=== PATIENT | male | born 1990 | race Caucasian/White ===

== ENCOUNTER 2023-05-25 16:13 | Emergency (ER) | payer BC, SELFPAY ==
[2023-05-25 16:24] VITALS: BP 168/99; BMI 25.8
[2023-05-25 16:47] LABS: % Basophils 0.5 % (0-2); % Eosinophils 0.6 % (0-6); % Immature Granulocytes 0.2 % (0-0.5); % Monocytes 3.3 % (1.7-9.3); % Neutrophils 65.4 % (42.2-75.2); Absolute Monocytes 0.2 10^3/uL (0.1-0.6); Absolute Neutrophils 4.3 10^3/uL (1.4-6.5); Hematocrit 40.8 % (39.0-52.0); Hemoglobin 14.7 g/dL (13.0-18.0); Mean Corpuscular Hgb 31.5 pg (27.0-31.0); Mean Corpuscular Volume 87.6 fL (80.0-94.0); Mean Platelet Volume 9.7 fL (7.4-10.4); Nucleated Red Blood Cells % 0 % (-); Platelet Count 253 10^3/uL (130-400); Red Blood Cell Count 4.66 10^6/uL (4.70-6.10); Red Cell Dist. Width 11.6 % (11.5-14.5); White Blood Cell Count 6.6 10^3/uL (4.8-10.8)
[2023-05-25 16:57] LABS: ALT (SGPT) 42 U/L (0-50); AST (SGOT) 32 U/L (17-59); Albumin 4.4 g/dl (3.5-5.0); Alkaline Phosphatase 44 U/L (38-126); Blood Urea Nitrogen 17 mg/dl (9-20); Carbon Dioxide 25 mmol/L (22-30); Chloride 103 mmol/L (98-107); Estimated Creatinine Clearance > 125 ml/min; Glucose 130 mg/dl (70-99); Potassium 3.9 mmol/L (3.5-5.1); Sodium 139 mmol/L (135-145); Total Bilirubin 0.7 mg/dl (0.2-1.3); Total Protein 7.1 g/dl (6.3-8.2); eGFR > 60.00
--- NOTE | 2023-05-25 19:54 | ED.GENMED ---
History of Present Illness
General
Chief Complaint: Headache
Source: patient
Exam Limitations: none
Time Seen by Provider: 05/25/23 19:40
Travel History
Have you had any contact with someone who has COVID-19?: No
Do you have any symptoms of coronavirus? Fever > 100 degrees, chills, cough, shortness of breath, sore throat, loss of taste or smell, muscle aches, or headache?: No
History of Present Illness
History of Present Illness:
Healthy 33-year-old male complaining of right-sided headache right temporal right scalp and behind the right eye. Symptoms for 2 weeks. Seen by primary care and started on antibiotics for possible sinus infection. Today he had a near syncopal
episode which prompted evaluation. No chest pain shortness of breath or other complaints. Although stated in triage that his vision feels blurred he states he has no acute visual issues to me
Past History
Past History
ED Past Medical History: Other (SVT)
ED Past Surgical History: Urological (Vasectomy) and Other (Some teeth)
Review of Systems
Review of Systems
All Other Systems: Not applicable
Constitutional: Denies fever
Respiratory: Reports no symptoms
Cardiac: Reports no symptoms
Phy Exam
Physical Exam
Physical Exam:
GENERAL: Alert and oriented in no apparent distress
EYE: Orbits normal. Corneas clear. Extraocular muscles intact. No hazy cornea
NECK: Supple, no carotid bruit
ENT: Pharynx without erythema
CARDIAC: Regular rate and rhythm without any obvious murmurs.
LUNGS: Clear breath sounds,normal
ABDOMEN: Soft, without focal tenderness or distention
NEUROLOGICAL: Alert and oriented , grossly non-focal. Speech normal. Cranial nerves II through XII intact.
SKIN: Warm and dry, no rash or lesion, no discoloration, skin intact.
MUSCULOSKELETAL: No edema,no deformity.Good color
PSYCH: Normal and appropriate interaction.
Course
Orders/Labs/Results
Orders:
Orders
05/25/23 16:37
Complete Blood Count/With Diff Urgent
Comprehensive Metabolic Panel Urgent
Erythrocyte Sed Rate Urgent
Comment: ADD ON
05/25/23 19:46
CT Head & Neck Angio W/wo IV Urgent
Comment:
Reason For Exam: Headache/blurry vision
05/25/23 19:47
Add On- LAB Urgent
Tests Added?: esr
05/25/23 19:48
0.9% Sodium Chloride 500 ml [Nss] 500 ml IV BOLUS
Abnormal Lab Results
05/25/23
16:37
RBC 4.66 L 10^6/uL
(4.70-6.10)
MCH 31.5 H pg
(27.0-31.0)
Glucose 130 H mg/dl
(70-99)
05/25/23 16:37
05/25/23 16:37
Vital Signs
Initial and Last Documented VS:
Initial Vital Signs
Temp Pulse Resp BP Pulse Ox
98.9 F 70 16 168/99 99
05/25/23 16:24 05/25/23 16:24 05/25/23 16:24 05/25/23 16:24 05/25/23 16:24
Last Documented Vital Signs
Temp Pulse Resp BP Pulse Ox
98.9 F 70 16 168/99 99
05/25/23 16:24 05/25/23 16:24 05/25/23 16:24 05/25/23 16:24 05/25/23 16:24
MDM/Problems Addressed
Differential Diagnosis Includes:
Right temporal right eye pain headache. Clinically stable and her normal neurologic exam. Labs stable. Await ESR. CT scans pending.
*Radiology
Radiology exam reviewed: radiology read reviewed (neg)
*Pulse Oximetry
Patient hypoxic: no
*Critical Care Note
Total Time (30-74mins, 75-104mins- exclusive of procedures): Not Applicable
Update Note
Update Note:
Since exam and workup unremarkable. Stable for discharge to follow-up
ED Attending Note
-
Portions of this chart may have been created with voice recognition software.� Occasional wrong word or��sound alike� substitutions may have occurred due to the inherent limitations of voice recognition software.
Discharge Plan
Departure
Patient Disposition: Home (Routine Discharge)
Date of Disposition: 05/25/23
Time of Disposition: 21:57
Patient with high blood pressure during this ER visit?: Yes
Discharge Problem:
Acute headache/transient visual issues
Instructions: Headache, Adult (DC), BLOOD PRESSURE
Prescriptions:
No Action
metoprolol tartrate 25 mg tablet
25 mg PO PRN PRN (Reason: SVT)
Rx Instructions:
PRN for SVT
Referrals:
Ta Simmons MD [Family Provider] - Follow up in 2-3 days
Activity Restrictions/Additional Instructions:
Follow-up closely with your primary physician
To consider also follow-up with ophthalmology
Return immediately with any change or progression of symptoms
Interventions
Interventions:
*Risk Screen - Suicide Last Done: 05/25/23 16:24
*General Assessment Last Done: 05/25/23 20:09
*Neglect/Abuse Screening Last Done: 05/25/23 16:24
ED- Fall Risk Assessment Last Done: 05/25/23 20:09
*ED COVID-19 Vaccine History Last Done: 05/25/23 16:24
ED- Neurological Assessment Last Done: 05/25/23 20:09
[2023-05-25] MEDS: NSS 500 IV (20:17)
[2023-05-25 20:30] LABS: Erythrocyte Sed Rate 8 mm/hour (0-20)
[2023-05-25 21:39] VITALS: BP 130/80
== END 2023-05-25 22:17 | disposition home or self-care (01) ==
LOC: EMR 16:13
PROVIDERS: Emergency Medicine; EMERGENCY PHYSICIAN Emergency Medicine; FAMILY PHYSICIAN Family Medicine
DX: R51.9 Headache, unspecified (principal); H53.8 Other visual disturbances; R55 Syncope and collapse
CPT/HCPCS: 99284; 96360; 70496; 70498; 80053; 85025; 85652; Q9967